=== PATIENT | female | born 1960 | race Caucasian/White ===

== ENCOUNTER 2019-03-11 17:00 | Emergency (ER) | payer OTHER ==
[2019-03-11 17:10] VITALS: BP 131/73; PULSE 72; RESP 18; TEMP 97.4
[2019-03-11] MEDS ORDERED: traMADol 50 MG TAB PO STA (17:40)
[2019-03-11 18:11] LABS: Basophils # (A) 0.1 k/uL (0-0.2); Basophils % (A) 1 %; Eosinophils # (A) 0.3 k/uL (0-0.7); Eosinophils % (A) 5 %; HCT 37.2 % (34.0-46.0); HGB 12.3 gm/dL (11.4-16.0); Lymphocytes # (A) 1.5 k/uL (1.0-4.8); Lymphocytes % (A) 25 %; MCH 32.4 pg (25.0-35.0); MCV 98.5 fL (80.0-100.0); Mean Platelet Volume 6.9; Monocytes # (A) 0.4 k/uL (0-1.0); Monocytes % (A) 7 %; Neutrophils # (A) 3.6 k/uL (1.3-7.7); Neutrophils % (A) 61 %; Platelet Count 120 k/uL (150-450); RBC 3.78 m/uL (3.80-5.40); WBC 5.9 k/uL (3.8-10.6)
[2019-03-11 18:14] LABS: Appearance,Urine Clear (Clear); Bilirubin,Urine Negative (Negative); Blood,Urine Negative (Negative); Color,Urine Yellow; Glucose,Urine (UA) Negative (Negative); Ketones,Urine Negative (Negative); Leukocyte Esterase,Urine Trace (Negative); Mucus,Urine Rare /hpf; Nitrite,Urine Negative (Negative); PH, Urine 5.5 (5.0-8.0); Protein,Urine Negative (Negative); RBC,Urine 1 /hpf (0-5); Specific Gravity,Urine 1.024 (1.001-1.035); Squamous Epithelial Cell,Urine 1 /hpf (0-4); Urobilinogen,Urine <2.0 mg/dL (<2.0); WBC,Urine 2 /hpf (0-5)
[2019-03-11 18:15] LABS: Partial Thromboplastin Time 25.1 sec (22.0-30.0); Prothrombin Time 11.1 sec (9.0-12.0)
[2019-03-11 18:16] LABS: ALT 39 U/L (9-52); AST 62 U/L (14-36); African American GFR (CKD) >90 (>60 ml/min/1.73 sqM); Albumin 3.4 g/dL (3.5-5.0); Alkaline Phosphatase 142 U/L (38-126); Anion Gap 6 mmol/L; Blood Urea Nitrogen 14 mg/dL (7-17); Calcium 9.4 mg/dL (8.4-10.2); Carbon Dioxide 26 mmol/L (22-30); Chloride 103 mmol/L (98-107); Glucose 186 mg/dL (74-99); Potassium 4.3 mmol/L (3.5-5.1); Sodium 135 mmol/L (137-145); Total Bilirubin 1.3 mg/dL (0.2-1.3); Total Protein 6.7 g/dL (6.3-8.2)
--- NOTE | 2019-03-11 18:20 | ED ---
General Adult HPI - General Chief complaint: Recheck/Abnormal Lab/Rx Stated complaint: Broken Rib Time Seen by Provider: 03/11/19 17:13 Source: patient Mode of arrival: ambulatory Limitations: no limitations - History of Present Illness Initial comments: Patient is 4-year-old female with history of sarcoidosis presents emergency Department with chief complaint of abdominal bruising. Patient reports upper respiratory infection for the past month with a nonproductive cough. Patient reports 3 days ago she had a severe coughing fit and felt a pop near the right side of her chest. Patient reports she developed immediate pain that has since decreased in severity. Patient reports yesterday she began to develop ecchymosis near the sternum and along the right side of her chest and right flank region. Patient reports a history of low platelet due to her sarcoidosis. Patient reports the pain is exacerbated when coughing and alleviated when sitting up. Patient reports taking ibuprofen to alleviate the pain. Patient reports going to the urgent care today where an x-ray was performed and she was diagnosed with a fracture or ninth rib. - Related Data Allergies Allergy/AdvReac Type Severity Reaction Status Date / Time No Known Allergies Allergy Verified 03/11/19 17:04 Review of Systems ROS Statement: Those systems with pertinent positive or pertinent negative responses have been documented in the HPI. ROS Other: All systems not noted in ROS Statement are negative. Past Medical History Past Medical History: Liver Disease Additional Past Medical History / Comment(s): sacodosis, R solitary kidney, UPJ L kidney, History of Any Multi-Drug Resistant Organisms: None Reported Past Surgical History: Hysterectomy, Orthopedic Surgery Additional Past Surgical History / Comment(s): L knee, lense replacement Past Psychological History: PTSD Smoking Status: Never smoker Past Alcohol Use History: None Reported, Occasional Past Drug Use History: None Reported General Exam Limitations: no limitations General appearance: alert, in no apparent distress Head exam: Present: atraumatic, normocephalic, normal inspection Eye exam: Present: normal appearance, PERRL, EOMI Pupils: Present: normal accommodation ENT exam: Present: normal exam, normal oropharynx, mucous membranes moist, TM's normal bilaterally, normal external ear exam Neck exam: Present: normal inspection, full ROM Respiratory exam: Present: normal lung sounds bilaterally, chest wall tenderness (Sternal region, right side of the chest and right flank region. Tenderness to palpation. ) Cardiovascular Exam: Present: regular rate, normal rhythm, normal heart sounds GI/Abdominal exam: Present: soft, normal bowel sounds Extremities exam: Present: normal inspection, full ROM Back exam: Present: normal inspection, full ROM Neurological exam: Present: alert, oriented X3 Psychiatric exam: Present: normal affect, normal mood Skin exam: Present: warm, intact, normal color, other ( Ecchymosis noted noted near the inferior sternal region, right chest and right flank region.) Course Vital Signs 03/11/19 17:04 Temperature 97.4 F L Pulse Rate 72 Respiratory 18 Rate Blood Pressure 131/73 O2 Sat by Pulse 98 Oximetry Medical Decision Making - Medical Decision Making patient is a 58-year-old female with history of sarcoidosis presenting to emergency Department with a chief complaint of rib bruising. Patient reports an upper respiratory infection that led to a nonproductive cough. Patient reports a cough if it 3 days ago and felt a pop near the right flank region. Patient reports developing severe pain at that incident as since developed bruising. X- ray from the urgent care suggesting a closed, nondisplaced ninth rib fracture. The fracture is in the anterior lateral region. Physical examination patient a ppears to have ecchymosis near the sternum, right chest and right flank region. Patient has no shortness of breath, chest pain, nausea or vomiting. Labs indicate a platelet count of 120. Patient reports her baseline is 100. Creatinine levels are within normal limits. PT/INR and PTT are within normal limits. I advised the patient that the ecchymosis will eventually resolve but I might take a prolonged period of time. Patient discharged with a tramadol starter pack. Patient advised about possible side effects of medication. Patient advised to follow-up with primary care. Case discussed physician. - Lab Data Result diagrams: 03/11/19 17:56 03/11/19 17:56 Lab Results 03/11/19 03/11/19 03/11/19 Range/Units 17:56 17:56 17:56 WBC 5.9 (3.8-10.6) k/uL RBC 3.78 L (3.80-5.40) m/uL Hgb 12.3 (11.4-16.0) gm/dL Hct 37.2 (34.0-46.0) % MCV 98.5 (80.0-100.0) fL MCH 32.4 (25.0-35.0) pg MCHC 33.0 (31.0-37.0) g/dL RDW 14.0 (11.5-15.5) % Plt Count 120 L (150-450) k/uL Neutrophils % 61 % Lymphocytes % 25 % Monocytes % 7 % Eosinophils % 5 % Basophils % 1 % Neutrophils # 3.6 (1.3-7.7) k/uL Lymphocytes # 1.5 (1.0-4.8) k/uL Monocytes # 0.4 (0-1.0) k/uL Eosinophils # 0.3 (0-0.7) k/uL Basophils # 0.1 (0-0.2) k/uL PT 11.1 (9.0-12.0) sec INR 1.0 (<1.2) APTT 25.1 (22.0-30.0) sec Sodium 135 L (137-145) mmol/L Potassium 4.3 (3.5-5.1) mmol/L Chloride 103 (98-107) mmol/L Carbon Dioxide 26 (22-30) mmol/L Anion Gap 6 mmol/L BUN 14 (7-17) mg/dL Creatinine 0.67 (0.52-1.04) mg/dL Est GFR (CKD-EPI)AfAm >90 (>60 ml/min/1.73 sqM) Est GFR (CKD-EPI)NonAf >90 (>60 ml/min/1.73 sqM) Glucose 186 H (74-99) mg/dL Calcium 9.4 (8.4-10.2) mg/dL Total Bilirubin 1.3 (0.2-1.3) mg/dL AST 62 H (14-36) U/L ALT 39 (9-52) U/L Alkaline Phosphatase 142 H (38-126) U/L Total Protein 6.7 (6.3-8.2) g/dL Albumin 3.4 L (3.5-5.0) g/dL Urine Color Urine Appearance (Clear) Urine pH (5.0-8.0) Ur Specific Mcintosh (1.001-1.035) Urine Protein (Negative) Urine Glucose (UA) (Negative) Urine Ketones (Negative) Urine Blood (Negative) Urine Nitrite (Negative) Urine Bilirubin (Negative) Urine Urobilinogen (<2.0) mg/dL Ur Leukocyte Esterase (Negative) Urine RBC (0-5) /hpf Urine WBC (0-5) /hpf Ur Squamous Epith Cells (0-4) /hpf Urine Mucus (None) /hpf 03/11/19 Range/Units 18:00 WBC (3.8-10.6) k/uL RBC (3.80-5.40) m/uL Hgb (11.4-16.0) gm/dL Hct (34.0-46.0) % MCV (80.0-100.0) fL MCH (25.0-35.0) pg MCHC (31.0-37.0) g/dL RDW (11.5-15.5) % Plt Count (150-450) k/uL Neutrophils % % Lymphocytes % % Monocytes % % Eosinophils % % Basophils % % Neutrophils # (1.3-7.7) k/uL Lymphocytes # (1.0-4.8) k/uL Monocytes # (0-1.0) k/uL Eosinophils # (0-0.7) k/uL Basophils # (0-0.2) k/uL PT (9.0-12.0) sec INR (<1.2) APTT (22.0-30.0) sec Sodium (137-145) mmol/L Potassium (3.5-5.1) mmol/L Chloride (98-107) mmol/L Carbon Dioxide (22-30) mmol/L Anion Gap mmol/L BUN (7-17) mg/dL Creatinine (0.52-1.04) mg/dL Est GFR (CKD-EPI)AfAm (>60 ml/min/1.73 sqM) Est GFR (CKD-EPI)NonAf (>60 ml/min/1.73 sqM) Glucose (74-99) mg/dL Calcium (8.4-10.2) mg/dL Total Bilirubin (0.2-1.3) mg/dL AST (14-36) U/L ALT (9-52) U/L Alkaline Phosphatase (38-126) U/L Total Protein (6.3-8.2) g/dL Albumin (3.5-5.0) g/dL Urine Color Yellow Urine Appearance Clear (Clear) Urine pH 5.5 (5.0-8.0) Ur Specific Mcintosh 1.024 (1.001-1.035) Urine Protein Negative (Negative) Urine Glucose (UA) Negative (Negative) Urine Ketones Negative (Negative) Urine Blood Negative (Negative) Urine Nitrite Negative (Negative) Urine Bilirubin Negative (Negative) Urine Urobilinogen <2.0 (<2.0) mg/dL Ur Leukocyte Esterase Trace H (Negative) Urine RBC 1 (0-5) /hpf Urine WBC 2 (0-5) /hpf Ur Squamous Epith Cells 1 (0-4) /hpf Urine Mucus Rare H (None) /hpf Disposition Clinical Impression: Rib fracture Disposition: HOME SELF-CARE Condition: Stable Instructions (If sedation given, give patient instructions): Rib Fracture (ED), Sarcoidosis (ED) Additional Instructions: Please take prescribed medication as directed. Please follow with primary care. Please return to emergency department if symptoms worsen. Is patient prescribed a controlled substance at d/c from ED?: No Referrals: Nonstaff,Physician [Primary Care Provider] - 1-2 days Time of Disposition: 18:52
[2019-03-11] MEDS ORDERED: traMADol 50 MG STARTER PACK 3 TAB BTL PO STA (18:52)
== END 2019-03-11 18:55 | disposition home or self-care (01) ==
LOC: EC 17:00
DX: S22.31XA Fracture of one rib, right side, initial encounter for closed fracture (principal); D86.9 Sarcoidosis, unspecified; R05 Cough; X58.XXXA Exposure to other specified factors, initial encounter
CPT/HCPCS: 36415; 80053; 81001; 85025; 85610; 85730; 99283

== ENCOUNTER 2021-01-05 13:56 | Emergency (ER) | payer OTHER ==
--- NOTE | 2021-01-05 15:22 | CT ---
EXAMINATION TYPE: CT orbits wo con DATE OF EXAM: 01/05/2021 COMPARISON: None HISTORY: Left eye swelling and redness. CT DLP: 259.2 mGycm Automated exposure control for dose reduction was used. Images obtained from the mid maxillary sinuses to the mid frontal sinuses without contrast. The globes are symmetric. There is no evidence of retro-orbital mass. There is mild preseptal soft ti ssue swelling on the left side. The bony orbits are intact. There is no evidence of a foreign body. T here is fairly normal aeration of the visualized paranasal sinuses. The lacrimal glands are fairly sy mmetric. IMPRESSION: Preseptal left periorbital soft tissue swelling. No retro-orbital mass.
--- NOTE | 2021-01-05 15:28 | ED ---
Eye Problem HPI - General Chief complaint: Eye Problems Stated complaint: In Quicker L eye swollen Time Seen by Provider: 01/05/21 14:29 Source: patient, RN notes reviewed Mode of arrival: ambulatory Limitations: no limitations - History of Present Illness Initial comments: Patient is a 60-year-old female that presents to emergency department with left eye swelling. She notes that she was recently at urgent care and given tobramycin ointment for a stye. She notes that she was given this on Thursday and it has since gotten worse. She notes that it is slightly tender to the touch. She denied any pain on eye movement just tenderness to the superior eyelid and inferior eyelid. She notes that she usually lives in [place] but is in [place] for summer so she does not have a primary care up here. She was requesting for 90 day supply of blood pressure medication. She was informed that the best we can do is a 30 day supply and refer her to a primary care. Patient did not appear to be in any distress or pain while sitting up in bed during exam and interview. She noted that it was more uncomfortable. She denied any blurry vision change in vision chest pain shortness of breath headache nausea vomiting diarrhea constipation fever fatigue chills. - Related Data Previous Rx's Medication Instructions Recorded Clindamycin HCl 300 mg PO Q8HR #21 cap 01/05/21 Losartan/Hydrochlorothiazide 1 tab PO DAILY 30 Days #30 tab 01/05/21 [Losartan-Hctz 100-12.5 mg Tab] Losartan/Hydrochlorothiazide 1 tab PO DAILY 30 Days #30 tab 01/05/21 [Losartan-Hctz 100-12.5 mg Tab] Allergies Allergy/AdvReac Type Severity Reaction Status Date / Time No Known Allergies Allergy Verified 03/11/19 17:04 Review of Systems ROS Statement: Those systems with pertinent positive or pertinent negative responses have been documented in the HPI. ROS Other: All systems not noted in ROS Statement are negative. Past Medical History Past Medical History: Liver Disease Additional Past Medical History / Comment(s): sacodosis, R solitary kidney, UPJ L kidney, History of Any Multi-Drug Resistant Organisms: None Reported Past Surgical History: Hysterectomy, Orthopedic Surgery Additional Past Surgical History / Comment(s): L knee, lense replacement Past Psychological History: PTSD Smoking Status: Never smoker Past Alcohol Use History: Occasional Past Drug Use History: None Reported General Exam Limitations: no limitations General appearance: alert, in no apparent distress Head exam: Present: atraumatic, normocephalic, normal inspection Eye exam: Present: PERRL, EOMI, periorbital swelling (Left eye), periorbital tenderness (Left eye). Absent: scleral icterus, conjunctival injection, nystagmus Pupils: Present: normal accommodation Expanded Eyelids: Stye: Left, Erythema: Left, Swelling: Left Pupils: Regular, Round: Bilateral, Reactive: Bilateral Sclera/Conjunctival: Normal Inspection: Bilateral Neck exam: Present: normal inspection Respiratory exam: Present: normal lung sounds bilaterally. Absent: respiratory distress, wheezes, rales, rhonchi, stridor Cardiovascular Exam: Present: regular rate, normal rhythm, normal heart sounds. Absent: systolic murmur, diastolic murmur, rubs, gallop, clicks Extremities exam: Present: normal inspection, full ROM, normal capillary refill. Absent: tenderness, pedal edema, joint swelling, calf tenderness Neurological exam: Present: alert, oriented X3 Psychiatric exam: Present: normal affect, normal mood Skin exam: Present: warm, dry, intact, normal color. Absent: rash Course Vital Signs 01/05/21 14:03 Temperature 97.9 F Pulse Rate 76 Respiratory 18 Rate Blood Pressure 167/83 O2 Sat by Pulse 98 Oximetry Medical Decision Making - Medical Decision Making Patient is a 60-year-old female complaining of left eye lid swelling and some tenderness. Recently started on tobramycin with no improvement. CT of the orbits, visual acuity ordered. Patient declined the need for any pain medication as it was tolerable at this time. Labs unremarkable. Case discussed with Dr. Au, patient discharge home with follow-up to primary care. - Lab Data Result diagrams: 01/05/21 15:10 Lab Results 01/05/21 Range/Units 15:10 Sodium 135 L (137-145) mmol/L Potassium 4.2 (3.5-5.1) mmol/L Chloride 110 H (98-107) mmol/L Carbon Dioxide 17 L (22-30) mmol/L Anion Gap 8 mmol/L BUN 10 (7-17) mg/dL Creatinine 0.56 (0.52-1.04) mg/dL Est GFR (CKD-EPI)AfAm >90 (>60 ml/min/1.73 sqM) Est GFR (CKD-EPI)NonAf >90 (>60 ml/min/1.73 sqM) Glucose 98 (74-99) mg/dL Calcium 9.4 (8.4-10.2) mg/dL - Radiology Data Radiology results: report reviewed, image reviewed CT of the orbits: Preseptal left periorbital soft tissue swelling. No retro- orbital mass. Disposition Clinical Impression: Periorbital cellulitis Disposition: HOME SELF-CARE Condition: Stable Instructions (If sedation given, give patient instructions): Periorbital Cellu litis in Adults (ED) Additional Instructions: Please return to the Emergency Department if symptoms worsen or any other concerns. Take antibiotics as prescribed. Follow-up with primary care in 5-7 days. Prescriptions: Clindamycin HCl 300 mg PO Q8HR #21 cap Losartan/Hydrochlorothiazide [Losartan-Hctz 100-12.5 mg Tab] 1 tab PO DAILY 30 Days #30 tab Losartan/Hydrochlorothiazide [Losartan-Hctz 100-12.5 mg Tab] 1 tab PO DAILY 30 Days #30 tab Is patient prescribed a controlled substance at d/c from ED?: No Referrals: Nonstaff,Physician [Primary Care Provider] - 1-2 days Tessa Bueno MD [REFERRING] - 1-2 days Time of Disposition: 16:14
[2021-01-05 15:50] LABS: African American GFR (CKD) >90 (>60 ml/min/1.73 sqM); Anion Gap 8 mmol/L; Blood Urea Nitrogen 10 mg/dL (7-17); Calcium 9.4 mg/dL (8.4-10.2); Carbon Dioxide 17 mmol/L (22-30); Chloride 110 mmol/L (98-107); Glucose 98 mg/dL (74-99); Non-African American GFR(CKD) >90 (>60 ml/min/1.73 sqM); Sodium 135 mmol/L (137-145)
[2021-01-05 15:58] LABS: Potassium 4.2 mmol/L (3.5-5.1)
[2021-01-05 16:23] LABS: Basophils % (A) 1 %; Eosinophils # (A) 0.1 k/uL (0-0.7); Eosinophils % (A) 2 %; HCT 41.3 % (34.0-46.0); HGB 14.5 gm/dL (11.4-16.0); Lymphocytes # (A) 1.8 k/uL (1.0-4.8); Lymphocytes % (A) 31 %; MCH 34.6 pg (25.0-35.0); MCHC 35.1 g/dL (31.0-37.0); MCV 98.6 fL (80.0-100.0); Mean Platelet Volume 6.9; Monocytes # (A) 0.4 k/uL (0-1.0); Monocytes % (A) 6 %; Neutrophils # (A) 3.3 k/uL (1.3-7.7); Neutrophils % (A) 57 %; Platelet Count 110 k/uL (150-450); RBC 4.19 m/uL (3.80-5.40); RDW 13.7 % (11.5-15.5); WBC 5.9 k/uL (3.8-10.6)
[2021-01-05 16:37] VITALS: BP 155/68; PULSE 84; RESP 20; TEMP 97.5
== END 2021-01-05 16:15 | disposition home or self-care (01) ==
LOC: EC 13:56
DX: L03.213 Periorbital cellulitis (principal)
CPT/HCPCS: 36415; 70480; 80048; 85025; 99284

== ENCOUNTER 2024-05-23 18:47 | Observation (INO) | payer OTHER ==
[2024-05-23 19:40] LABS: Appearance,Urine Clear (Clear); Bilirubin,Urine Negative (Negative); Blood,Urine Negative (Negative); Color,Urine Colorless; Glucose,Urine (UA) Negative (Negative); Ketones,Urine Negative (Negative); Leukocyte Esterase,Urine Negative (Negative); Nitrite,Urine Negative (Negative); Protein,Urine Negative (Negative); Specific Gravity,Urine 1.005 (1.001-1.035); Urobilinogen,Urine <2.0 mg/dL (<2.0)
--- NOTE | 2024-05-23 20:58 | XR ---
EXAMINATION TYPE: XR chest 2V DATE OF EXAM: 05/23/2024 8:05 PM COMPARISON: None. CLINICAL INDICATION: Female, 64 years old with history of Chest Pain, TECHNIQUE: XR chest 2V view(s) obtained. FINDINGS: The heart size is normal. The pulmonary vasculature is normal. Posterior pleural effusions are present.. IMPRESSION: 1. Posterior pleural effusions [facility], , 05/23/2024 8:56 PM
--- NOTE | 2024-05-23 21:25 | ED ---
Chest Pain HPI - General Chief Complaint: Chest Pain Stated Complaint: Chest pain Time Seen by Provider: 05/23/24 19:35 Source: patient, RN notes reviewed Mode of arrival: EMS Limitations: no limitations - History of Present Illness Initial Comments: 64-year-old female presents emergency department chief complaint of chest pain. Patient states she has centralized chest pain sternal substernal chest pain. Patient does admit that she had a fall 10 days ago down some steps. States she has some soreness but since Thursday she had severe substernal chest pain. Patient denies any prior cardiac disease other than known aortic valve issues. Patient states that she does have pulmonary hypertension. She states that she developed some leg pain and is recently traveled back from [place]. Patient states that she had ultrasound at [place] which was negative for acute DVT. Patient states that pain is worse with movement but out of the usual for her. Patient denies any fevers or chills she does complain of right arm skin tear in which she has been taking care of. - Related Data Previous Rx's Medication Instructions Recorded Losartan/Hydrochlorothiazide 1 tab PO DAILY 30 Days #30 tab 01/05/21 [Losartan-Hctz 100-12.5 mg Tab] Losartan/Hydrochlorothiazide 1 tab PO DAILY 30 Days #30 tab 01/05/21 [Losartan-Hctz 100-12.5 mg Tab] Potassium Chloride ER [K-Dur 10] 10 meq PO DAILY 15 Days #15 tab 01/05/21 clindamycin HCL [Clindamycin HCl] 300 mg PO Q8HR #21 cap 01/05/21 Allergies Allergy/AdvReac Type Severity Reaction Status Date / Time No Known Allergies Allergy Verified 03/11/19 17:04 Review of Systems ROS Statement: Those systems with pertinent positive or pertinent negative responses have been documented in the HPI. ROS Other: All systems not noted in ROS Statement are negative. Past Medical History Past Medical History: Liver Disease Additional Past Medical History / Comment(s): sacodosis, R solitary kidney, UPJ L kidney, History of Any Multi-Drug Resistant Organisms: None Reported Past Surgical History: Hysterectomy, Orthopedic Surgery Additional Past Surgical History / Comment(s): L knee, lense replacement Past Psychological History: PTSD Smoking Status: Never smoker Past Alcohol Use History: Occasional Past Drug Use History: None Reported General Exam Limitations: no limitations General appearance: alert, in no apparent distress Head exam: Present: atraumatic, normocephalic, normal inspection ENT exam: Present: normal exam, normal oropharynx, mucous membranes moist Neck exam: Present: normal inspection, full ROM. Absent: tenderness, meningismus, lymphadenopathy Respiratory exam: Present: normal lung sounds bilaterally, chest wall tenderness. Absent: respiratory distress, wheezes, rales, rhonchi, stridor Cardiovascular Exam: Present: regular rate, normal rhythm, normal heart sounds. Absent: systolic murmur, diastolic murmur, rubs, gallop, clicks GI/Abdominal exam: Present: soft, normal bowel sounds. Absent: distended, tenderness, guarding, rebound, rigid Course Vital Signs 05/23/24 05/23/24 18:51 22:15 Temperature 98.1 F Pulse Rate 78 73 Respiratory 20 18 Rate Blood Pressure 166/78 139/69 O2 Sat by Pulse 96 98 Oximetry Chest Pain MDM - MDM Was pt. sent in by a medical professional or institution (, PA, GENERAL FARMER, urgent care, hospital, or half-way...) When possible be specific @ -No Did you speak to anyone other than the patient for history (EMS, parent, family, police, friend...)? What history was obtained from this source @ -No Did you review nursing and triage notes (agree or disagree)? Why? @ -I reviewed and agree with nursing and triage notes Were old charts reviewed (outside hosp., previous admission, EMS record, old EKG, old radiological studies, urgent care reports/EKG's, half-way records)? Report findings @ -No old charts were reviewed Differential Diagnosis (chest pain, altered mental status, abdominal pain women, abdominal pain men, vaginal bleeding, weakness, fever, dyspnea, syncope, headache, dizziness, GI bleed, back pain, seizure, CVA, palpatations, mental health, musculoskeletal)? @ -Differential Chest Pain: Stable Angina, Unstable Angina, STEMI, NSTEMI Aortic Dissection, Pneumothorax, Musculoskeletal, Esophageal Spasm GERD, Cholecystitis, Pancreatitis, Zoster, this is not meant to be an all-inclusive list. EKG interpreted by me (3pts min.). @ -As above X-rays interpreted by me (1pt min.). @ -Chest x-ray shows bilateral pleural effusions CT interpreted by me (1pt min.). @ -CT angio chest negative for acute PE, there is right-sided pleural effusion, remote fractures CT abdomen pelvis showing large return inclusion cyst of the left U/S interpreted by me (1pt. min.). @ -None done What testing was considered but not performed or refused? (CT, X-rays, U/S, labs)? Why? @ -None What meds were considered but not given or refused? Why? @ -None Did you discuss the management of the patient with other professionals (professionals i.e. , PA, GENERAL FARMER, lab, RT, psych nurse, social welfare clerk, refrigerated cargo clerk, teacher, assault amphibious vehicle officer, major case detective)? Give summary @ -EMH for admission Was smoking cessation discussed for >3mins.? @ -No Was critical care preformed (if so, how long)? @ -No Were there social determinants of health that impacted care today? How? (Homelessness, low income, unemployed, alcoholism, drug addiction, transportation, low edu. Level, literacy, decrease access to med. care, correction, rehab)? @ -No Was there de-escalation of care discussed even if they declined (Discuss DNR or withdrawal of care, Hospice)? DNR status @ -No What co-morbidities impacted this encounter? (DM, HTN, Smoking, COPD, CAD, Cancer, CVA, ARF, Chemo, Hep., AIDS, mental health diagnosis, sleep apnea, morbid obesity)? @ -Liver disease, prior TIPS, left nephrectomy Was patient admitted / discharged? Hospital course, mention meds given and route, prescriptions, significant lab abnormalities, going to OR and other pertinent info. @ -Admitted patient presented for chest pain. Patient been worsening chest pain multiple risk factors. Patient has pleural effusion noted, no PE. Patient on repeat troponin. Patient marked have large intra-abdominal cyst, mass will be admitted with cardiology and surgery evaluation Undiagnosed new problem with uncertain prognosis? @ -yes Drug Therapy requiring intensive monitoring for toxicity (Heparin, Nitro, Insulin, Cardizem)? @ -No Were any procedures done? @ -No Diagnosis/symptom? @ -chest Pain, abdominal mass Acute, or Chronic, or Acute on Chronic? @ -acute Uncomplicated (without systemic symptoms) or Complicated (systemic symptoms)? @ -complicated Side effects of treatment? @ -No Exacerbation, Progression, or Severe Exacerbation? @ -No Poses a threat to life or bodily function? How? (Chest pain, [place], [place], pneumonia, PE, COPD, DKA, ARF, appy, cholecystitis, CVA, Diverticulitis, Homicidal, Suicidal, threat to staff... and all critical care pts) @ -Yes possible ACS causing cardiac arrest Disposition Clinical Impression: Chest pain, Abdominal mass Disposition: ADMITTED IP TO THIS HOSP Referrals: Nonstaff,Physician [Primary Care Provider] - 1-2 days Time of Disposition: 23:50
[2024-05-23 21:52] LABS: Basophils % (A) 0 %; Eosinophils # (A) 0.1 k/uL (0-0.7); Eosinophils % (A) 2 %; HCT 39.9 % (34.0-46.0); HGB 13.2 gm/dL (11.4-16.0); Lymphocytes # (A) 1.7 k/uL (1.0-4.8); Lymphocytes % (A) 27 %; MCH 34.5 pg (25.0-35.0); MCHC 33.1 g/dL (31.0-37.0); MCV 104.4 fL (80.0-100.0); Macrocytosis Moderate; Mean Platelet Volume 7.3; Monocytes # (A) 0.4 k/uL (0-1.0); Monocytes % (A) 6 %; Neutrophils # (A) 4.1 k/uL (1.3-7.7); Neutrophils % (A) 63 %; Platelet Count 108 k/uL (150-450); RBC 3.83 m/uL (3.80-5.40); RDW 14.3 % (11.5-15.5); WBC 6.5 k/uL (3.8-10.6)
[2024-05-23] MEDS: HYDROmorphone 0.5 MG/0.5 ML SYRINGE IVP STA (21:55)
[2024-05-23 22:01] LABS: ALT 33 U/L (4-34); AST 58 U/L (14-36); African American GFR (CKD) >90 (>60 ml/min/1.73 sqM); Albumin 2.9 g/dL (3.5-5.0); Alkaline Phosphatase 198 U/L (38-126); Anion Gap 4 mmol/L; Blood Urea Nitrogen 14 mg/dL (7-17); Calcium 9.3 mg/dL (8.4-10.2); Carbon Dioxide 22 mmol/L (22-30); Chloride 109 mmol/L (98-107); Glucose 92 mg/dL (74-99); Magnesium 1.4 mg/dL (1.6-2.3); Non-African American GFR(CKD) >90 (>60 ml/min/1.73 sqM); Potassium 3.7 mmol/L (3.5-5.1); Sodium 135 mmol/L (137-145); Total Bilirubin 4.3 mg/dL (0.2-1.3); Total Protein 5.8 g/dL (6.3-8.2)
[2024-05-23 22:09] LABS: NT-Pro-B-Type Natriuretic Pept 1150 pg/mL
[2024-05-23 22:10] LABS: INR 1.4 (<1.2); Partial Thromboplastin Time 26.9 sec (22.0-30.0); Prothrombin Time 14.7 sec (10.0-12.5)
[2024-05-23] MEDS: SODIUM CHLORIDE 0.9% 500 ML 500 ML IV ONE (22:56)
--- NOTE | 2024-05-23 23:11 | CT ---
EXAM: CT Angiography Chest With Intravenous Contrast CLINICAL HISTORY: ITS.REASON CT Reason: chest pain TECHNIQUE: Axial computed tomographic angiography images of the chest with intravenous contrast. CTDI is 58.8 mGy and DLP is 1534.3 mGy-cm. This CT exam was performed using one or more of the following dose reduction techniques: automated exposure control, adjustment of the mA and/or kV according to patient size, and/or use of iterative reconstruction technique. MIP reconstructed images were created and reviewed. COMPARISON: No relevant prior studies available. FINDINGS: Pulmonary arteries: No acute findings. No pulmonary embolism. Aorta: Mild calcified plaque thoracic aorta. No thoracic aortic aneurysm. Lungs: See below. Pleural space: Small right pleural effusion. Mild bibasilar atelectasis. No pneumothorax. Heart: Mild coronary artery calcification. Bones/joints: Remote-appearing rib fractures. No dislocation. Soft tissues: Some edema in the subcutaneous tissues of the chest wall. Lymph nodes: Unremarkable. No enlarged lymph nodes. Other findings: Sequela of old granulomatous disease in the chest. IMPRESSION: 1. No pulmonary embolism. 2. Small right pleural effusion. Mild bibasilar atelectasis.
--- NOTE | 2024-05-23 23:21 | CT ---
EXAM: CT Abdomen and Pelvis With Intravenous Contrast CLINICAL HISTORY: ITS.REASON CT Reason: pain TECHNIQUE: Axial computed tomography images of the abdomen and pelvis with intravenous contrast. CTDI is 62.4 mGy and DLP is 1543.3 mGy-cm. This CT exam was performed using one or more of the following dose reduction techniques: automated exposure control, adjustment of the mA and/or kV according to patient size, and/or use of iterative reconstruction technique. COMPARISON: No relevant prior studies available. FINDINGS: ABDOMEN: Liver: Cirrhotic liver. TIPS. Gallbladder and bile ducts: Unremarkable. No calcified stones. No ductal dilation. Pancreas: Unremarkable. No mass. No ductal dilation. Spleen: Unremarkable. No splenomegaly. Adrenals: Unremarkable. No mass. Kidneys and ureters: Left nephrectomy. Stomach and bowel: Small duodenal diverticulum. Colonic diverticulosis. No obstruction. No mucosal thickening. PELVIS: Appendix: No findings to suggest acute appendicitis. Bladder: Small foci of gas in bladder. Reproductive: Hysterectomy. ABDOMEN and PELVIS: Intraperitoneal space: Large cyst in the left abdomen. This measures 21 x 17 x 25 cm. No free air. No significant fluid collection. Bones/joints: Degenerative changes in the spine, SI joints and pubic symphysis. No acute fracture. No dislocation. Soft tissues: Anasarca. Vasculature: Calcified plaque abdominal aorta and iliac arteries. Multiple portosystemic collaterals. No abdominal aortic aneurysm. Lymph nodes: Unremarkable. No enlarged lymph nodes. IMPRESSION: 1. Small foci of gas in bladder. Correlate for recent instrumentation versus cystitis. 2. Cirrhotic liver. Findings of portal hypertension. 3. Large cyst in the left abdomen. This measures 21 x 17 x 25 cm. This may represent a peritoneal inclusion cyst. 4. Colonic diverticulosis.
[2024-05-23] MEDS ORDERED: NITROGLYCERIN SL TABS 0.4 MG TAB SUBLINGUAL PRN (23:44)
[2024-05-23] MEDS ORDERED: ONDANSETRON 4 MG/2 ML VIAL IVP PRN (23:47)
[2024-05-24] MEDS: HYDROmorphone 0.5 MG/0.5 ML SYRINGE IVP PRN (00:27)
--- NOTE | 2024-05-24 08:13 | P.CRDCN ---
History of Present Illness Consult date: 05/24/24 Consult reason: chest pain History of present illness: This is a 64-year-old female with no previous cardiac history and does not follow with a paster operator. She has a past medical history of hypertension, fatty liver with end-stage liver disease on transplant list, hypertension, GERD. We have been asked to evaluate the patient for chest pain. Patient states that on May 13 she return from [place] was at her sister's place in [place] and fell down stairs injuring her knee her right arm and across her chest. She denies any loss of consciousness. But she had difficulty walking following this due to knee injury. When she went to her own home, she was sore but was doing okay until Thursday evening she developed excruciating chest pain in the sternal area that was sharp, worse with deep breathing. She denies any radiation of the pain. Patient follows with [facility] in [place] every 3 months due to the liver failure status post TIPS procedure 2 years ago. She has been on the liver transplant list for 1 year. She underwent a dobutamine stress test at [facility] in September of this year which she reports is normal as well as echocardiogram. Regarding the chest pain, she does states she hit her chest when she fell on May 13. She does have tenderness to the chest wall. Patient does have lower extremity edema which she states has been increased since her fall. She did take her Lasix 40 mg yesterday as well as Aldactone 100 mg. Blood pressure 126/57, heart rate 68, pulse ox 97% on 2 L. Also, patient recently had ultrasound of lower extremities at [facility] negative for DVT EKG: Chest x-ray: Posterior pleural effusions. CT of the abdomen pelvis revealed small foci of gas in bladder. Correlate for r ecent instrumentation versus cystitis. Cirrhotic liver with portal hypertension. Large cyst in the left abdomen measuring 21 x 17 x 25 cm. This may represent a peritoneal inclusion cyst. Colonic diverticulosis. CTA of the chest revealed no pulmonary embolism. Small right pleural effusion. Mild bibasilar atelectasis. Laboratory studies: WBC 6.5, hemoglobin 13.2. INR 1.4. D-dimer 5.79. Sodium 135, potassium 3.7. Creatinine 0.69. Troponin negative x 3. Magnesium 1.4. Total bilirubin 4.3, AST 58, alkaline phosphatase 198. proBNP 1150 Home cardiac medications: Clonidine patch 0.1 mg per 24-hour on Wednesdays and Saturdays, Lasix 20 mg daily as needed, losartan 100 mg daily as needed. Review Of Systems: At the time of my exam: CONSTITUTIONAL: Denies fever or chills. HEENT: Denies blurred vision, vision changes, or eye pain. Denies hemoptysis CARDIOVASCULAR: Denies chest pain. Denies orthopnea. Denies PND. Denies palpitations RESPIRATORY: Denies shortness of breath. GASTROINTESTINAL: Denies abdominal pain. Denies nausea or vomiting. HEMATOLOGIC: Denies bleeding disorders. GENITOURINARY: Denies any blood in urine. SKIN: Denies puritis. Denies rash. Physical examination: Gen: This is a 64-year-old female in no acute distress VS: reviewed HEENT: Head is atraumatic, normocephalic. Pupils equal, round. Sclerae is anicteric. NECK: Supple. No JVD. LUNGS: Clear to auscultation. No wheezes or rhonchi. No intercostal retractions. HEART: Regular rate and rhythm. No murmur. ABDOMEN: Soft No tenderness. EXTREMITIES: Bilateral lower extremity edema. No calf tenderness. NEUROLOGICAL: Patient is awake, alert and oriented x3. Assessment: Noncardiac chest pain, musculoskeletal chest pain is reproducible secondary to recent fall History of end-stage liver disease on transplant list Hypertension Plan: Start patient on IV Lasix 40 mg every 12 hours Monitor ISADORA, daily weights, electrolytes and renal function No plan to repeat stress test as this was done in September Obtain 2-D echocardiogram and Doppler study to assess cardiac structure and function Further recommendations to follow based upon clinical course Thank you kindly for this consultation. Nurse practitioner note has been reviewed, I agree with documented findings and plan of care. Patient was seen and examined. Past Medical History Past Medical History: Liver Disease Additional Past Medical History / Comment(s): sacodosis, R solitary kidney, UPJ L kidney, History of Any Multi-Drug Resistant Organisms: None Reported Past Surgical History: Hysterectomy, Orthopedic Surgery Additional Past Surgical History / Comment(s): L knee, lense replacement Past Psychological History: PTSD Smoking Status: Never smoker Past Alcohol Use History: Occasional Past Drug Use History: None Reported Medications and Allergies Home Medications Medication Instructions Recorded Confirmed Type ALPRAZolam [Xanax] 0.25 mg PO Q8H PRN 05/24/24 05/24/24 History Acetaminophen [Tylenol Extra 500 mg PO Q6H PRN 05/24/24 05/24/24 History Strength] Cholecalciferol (Vitamin D3) 50 mcg PO DAILY 05/24/24 05/24/24 History [Vitamin D3 (50 Mcg = 2000 Iu)] Furosemide [Lasix] 20 mg PO DAILY PRN 05/24/24 05/24/24 History Losartan Potassium [Cozaar] 100 mg PO DAILY PRN 05/24/24 05/24/24 History Pantoprazole [Protonix] 40 mg PO DAILY PRN 05/24/24 05/24/24 History Rifaximin [Xifaxan] 550 mg PO BID 05/24/24 05/24/24 History Sertraline [Zoloft] 25 mg PO DAILY 05/24/24 05/24/24 History Vitamin A 2,400 mcg PO DAILY 05/24/24 05/24/24 History cloNIDine 0.1 MG/24HR PATCH 1 patch TRANSDERM WESA 05/24/24 05/24/24 History [Catapres-TTS] Allergies Allergy/AdvReac Type Severity Reaction Status Date / Time No Known Allergies Allergy Verified 05/24/24 07:31 Physical Exam Vitals: Vital Signs Temp Pulse Resp BP Pulse Ox 05/24/24 04:51 76 18 126/57 97 05/24/24 00:36 78 18 130/51 96 05/23/24 22:15 73 18 139/69 98 05/23/24 18:51 98.1 F 78 20 166/78 96 Intake and Output 05/23/24 05/24/24 05/24/24 22:59 06:59 14:59 Other: Weight 122.47 kg Results 05/23/24 21:44 05/23/24 21:44 Cardiac Enzymes 05/23/24 05/23/24 05/24/24 Range/Units 21:44 21:44 00:52 AST 58 H (14-36) U/L Troponin I 0.019 0.019 (0.000-0.034) ng/mL 05/24/24 Range/Units 03:38 AST (14-36) U/L Troponin I 0.021 (0.000-0.034) ng/mL Coagulation 05/23/24 Range/Units 21:44 PT 14.7 H (10.0-12.5) sec APTT 26.9 (22.0-30.0) sec CBC 05/23/24 Range/Units 21:44 WBC 6.5 (3.8-10.6) k/uL RBC 3.83 (3.80-5.40) m/uL Hgb 13.2 (11.4-16.0) gm/dL Hct 39.9 (34.0-46.0) % Plt Count 108 L (150-450) k/uL Comprehensive Metabolic Panel 05/23/24 Range/Units 21:44 Sodium 135 L (137-145) mmol/L Potassium 3.7 (3.5-5.1) mmol/L Chloride 109 H (98-107) mmol/L Carbon Dioxide 22 (22-30) mmol/L BUN 14 (7-17) mg/dL Creatinine 0.69 (0.52-1.04) mg/dL Glucose 92 (74-99) mg/dL Calcium 9.3 (8.4-10.2) mg/dL AST 58 H (14-36) U/L ALT 33 (4-34) U/L Alkaline Phosphatase 198 H (38-126) U/L Total Protein 5.8 L (6.3-8.2) g/dL Albumin 2.9 L (3.5-5.0) g/dL Current Medications Generic Name Dose Route Start Last Admin Trade Name Freq PRN Reason Stop Dose Admin Aspirin 325 mg 05/24/24 09:00 Aspirin 325 Mg Tab PO DAILY CARLENE Hydromorphone HCl 0.5 mg 05/23/24 23:46 05/24/24 04:55 Hydromorphone 0.5 Mg/0.5 Ml Syringe IVP 0.5 mg Q3HR PRN Administration Pain Nitroglycerin 0.4 mg 05/23/24 23:44 Nitroglycerin Sl Tabs 0.4 Mg Tab SUBLINGUAL Q5M PRN Chest Pain Ondansetron HCl 4 mg 05/23/24 23:47 Ondansetron 4 Mg/2 Ml Vial IVP Q6HR PRN Nausea And Vomiting Intake and Output 05/23/24 05/24/24 05/24/24 22:59 06:59 14:59 Other: Weight 122.47 kg 05/23/24 21:44 05/23/24 21:44
[2024-05-24] MEDS: ASPIRIN 325 MG TAB PO SCH (08:48)
[2024-05-24] MEDS: FUROSEMIDE 10 MG/ML 4 ML VIAL IV SCH (08:48)
[2024-05-24 09:42] LABS: Chol/HDL Ratio 4.02 Ratio; LDL Cholesterol,Calculated 133.2 mg/dL (0.0-131.0); VLDL Calculation 14.84 mg/dL (5.00-40.00)
--- NOTE | 2024-05-24 12:31 | CA ---
Transthoracic Echo Report Name: Paradise Walton Age: 64 Gender: F : 1960 Exam Date: 05/24/2024 08:45 Exam Location: [facility] Ht (in): 65 Wt (lb): 270 Ordering Physician: Florentino Mobley PAC Attending/Referring Phys: YENNI, Leandra Principal Database Developer Fatimah Oro, KAMILLE Procedure CPT: Indications: Chest Pain Cardiac Hx: Technical Quality: Fair Contrast 1: Total Dose (mL): Contrast 2: Total Dose (mL): MEASUREMENTS (Male / Female) Normal Values 2D ECHO LV Diastolic Diameter PLAX 5.6 cm 4.2 - 5.9 / 3.9 - 5.3 cm LV Systolic Diameter PLAX 2.7 cm IVS Diastolic Thickness 1.2 cm 0.6 - 1.0 / 0.6 - 0.9 cm LVPW Diastolic Thickness 1.2 cm 0.6 - 1.0 / 0.6 - 0.9 cm LV Relative Wall Thickness 0.4 RV Internal Dim ED PLAX 2.6 cm LVOT Diameter 1.9 cm LA Systolic Diameter LX 5.0 cm 3.0 - 4.0 / 2.7 - 3.8 cm LV Diastolic Volume MOD BP 83.3 cm??? 67 - 155 / 56 - 104 cm??? LV Systolic Volume MOD BP 18.7 cm??? 22 - 58 / 19 - 49 cm??? LV Ejection Fraction MOD BP 77.6 % >= 55 % LV Cardiac Index MOD BP 2040.1 cm???/min???m??? LV Diastolic Volume MOD 4C 88.4 cm??? LV Systolic Volume MOD 4C 21.6 cm??? LV Ejection Fraction MOD 4C 75.6 % LV Cardiac Index MOD 4C 2111.6 cm???/min???m??? LV Diastolic Length 4C 7.8 cm LV Systolic Length 4C 5.6 cm LV Diastolic Volume MOD 2C 75.9 cm??? LV Systolic Volume MOD 2C 15.9 cm??? LV Ejection Fraction MOD 2C 79.0 % LV Cardiac Index MOD 2C 1892.3 cm???/min???m??? LV Diastolic Length 2C 7.5 cm LV Systolic Length 2C 5.8 cm LA Volume 84.1 cm??? 18 - 58 / 22 - 52 cm??? LA Volume Index 34.5 cm???/m??? 16 - 28 cm???/m??? M-MODE Aortic Root Diameter MM 3.1 cm LA Systolic Diameter MM 5.3 cm LA Ao Ratio MM 1.7 AV Cusp Separation MM 1.4 cm DOPPLER AV Peak Velocity 265.8 cm/s AV Peak Gradient 28.3 mmHg AV Mean Velocity 204.0 cm/s AV Mean Gradient 17.9 mmHg AV Velocity Time Integral 63.7 cm AI Peak Velocity 376.4 cm/s AI Peak Gradient 56.7 mmHg AI Pressure Half Time 696.9 ms LVOT Peak Velocity 135.4 cm/s LVOT Peak Gradient 7.3 mmHg LVOT Velocity Time Integral 33.5 cm LVOT Stroke Volume 98.0 cm??? LVOT Stroke Volume Index 43.6 ml/m??? LVOT Cardiac Index 3095.0 cm???/min???m??? AV Area Cont Eq vti 1.5 cm??? AV Area Cont Eq pk 1.5 cm??? MV Area PHT 2.3 cm??? Mitral E Point Velocity 113.0 cm/s Mitral A Point Velocity 132.5 cm/s Mitral E to A Ratio 0.9 MV Deceleration Time 332.5 ms TR Peak Velocity 254.8 cm/s TR Peak Gradient 26.0 mmHg FINDINGS Left Ventricle Left ventricular ejection fraction is estimated at 55-60%. Mildly increased septal wall thickness. Mildly increased posterior wall thickness. Mildly increased left ventricular diastolic diameter. No obvious regional wall motion abnormalities. Right Ventricle Normal right ventricular size and function. Right ventricular systolic pressure within normal limits. Right Atrium Mild right atrial dilatation. Left Atrium Severely increased left atrial diameter. Moderately increased left atrial volume. Mildly increased left atrial area. Mitral Valve Structurally normal mitral valve. Mild mitral regurgitation. No mitral stenosis. Aortic Valve Mild aortic stenosis with a peak gradient of 28 mmHg and a mean gradient of 18 mmHg. Mild aortic regurgitation. Trileaflet aortic valve. Tricuspid Valve Structurally normal tricuspid valve. Mild tricuspid regurgitation. No tricuspid stenosis. Pulmonic Valve Structurally normal pulmonic valve. No pulmonic stenosis. Trace pulmonic regurgitation. Pericardium Echo free space anterior to the right ventricle likely represents a fat pad. No pericardial or pleural effusion. Aorta Normal size aortic root and proximal ascending aorta. CONCLUSIONS Normal biventricular systolic function Aortic sclerosis with mild to moderate stenosis and mean gradient of 18 mmHg and mild aortic insufficiency Normal pulmonary artery systolic pressure Previewed by: Dr. Steffen Murray MD (Electronically Signed) Final Date: 24 May 2024 12:30
--- NOTE | 2024-05-24 12:57 | P.GSCN ---
History of Present Illness Consult date: 05/24/24 History of present illness: CHIEF COMPLAINT: Chest pain HISTORY OF PRESENT ILLNESS: This is a 64-year-old female who presented with chest pain. Patient had a fall on May 13 she had tripped on steps. And since then she has been having chest pain. She reports on Thursday the pain became worse and she came into the ER for further evaluation. Patient seen by cardiology service who felt that is more musculoskeletal pain. CT was negative for PE. She did have a CT scan of the abdomen which did report a large cyst in the left abdomen measuring 21 x 17 x 25 cm. Patient denies any abdominal pain. Denies any nausea or vomiting. She has been having bowel movements. She does have a known history of liver disease and is on a transplant list at [facility]. She denies any alcohol history. Patient seen and examined with Dr. Salas PAST MEDICAL HISTORY: Liver disease on transplant list, sarcoidosis, right solitary kidney, UPJ left kidney PAST SURGICAL HISTORY: Hysterectomy MEDICATIONS: See below ALLERGIES: See below SOCIAL HISTORY: No illicit drug use. REVIEW OF SYSTEMS: CONSTITUTIONAL: Denies fever or chills. HEENT: Denies blurred vision, vision changes, or eye pain. Denies hemoptysis CARDIOVASCULAR: Denies chest pain or pressure. RESPIRATORY: No shortness of breath. GASTROINTESTINAL: See HPI for pertinent findings HEMATOLOGIC: Denies bleeding disorders. GENITOURINARY: Denies any blood in urine or increased urinary frequency. SKIN: Denies pruitis. Denies rash. PHYSICAL EXAM: VITAL SIGNS: Reviewed GENERAL: Well-developed in no acute distress. HEENT: No sclera icterus. Extraocular movements grossly intact. Moist buccal m ucosa. Head is atraumatic, normocephalic. No nasal drainage. ABDOMEN: Soft. Obese. Nondistended. Nontender NEUROLOGIC: Alert and oriented. Cranial nerves II through XII grossly intact. LABORATORY DATA: WBC 6.5 Hgb 13.2 platelets 108 INR 1.4 D-dimer 5.79 Sodium 135 potassium 3.7 magnesium 1.4 total bili 4.3 AST 58 ALT 33 alk phos 198 Troponins negative x 3 Albumin 2.9 IMAGING: CT scan abdomen pelvis reports small foci of gas in bladder correlate for recent instrumentation versus cystitis. Cirrhotic liver. Findings of portal hypertension. Large cyst in the left abdomen measuring 21 x 17 x 24 cm. This may represent a peritoneal inclusion cyst. Colonic diverticulosis. ASSESSMENT: 1. Large cyst in the left abdomen measuring 21 x 17 x 24 cm possible peritoneal inclusion cyst PLAN: -No surgical intervention planned -Recommend repeat CT scan of abdomen pelvis in 3 months Physician Electronic Game Developer note has been reviewed by physician. Signing provider agrees with the documented findings, assessment, and plan of care. Past Medical History Past Medical History: Liver Disease Additional Past Medical History / Comment(s): sacodosis, R solitary kidney, UPJ L kidney, History of Any Multi-Drug Resistant Organisms: None Reported Past Surgical History: Hysterectomy, Orthopedic Surgery Additional Past Surgical History / Comment(s): L knee, lense replacement Past Psychological History: PTSD Smoking Status: Never smoker Past Alcohol Use History: Occasional Past Drug Use History: None Reported Medications and Allergies Home Medications Medication Instructions Recorded Confirmed Type ALPRAZolam [Xanax] 0.25 mg PO Q8H PRN 05/24/24 05/24/24 History Acetaminophen [Tylenol Extra 500 mg PO Q6H PRN 05/24/24 05/24/24 History Strength] Cholecalciferol (Vitamin D3) 50 mcg PO DAILY 05/24/24 05/24/24 History [Vitamin D3 (50 Mcg = 2000 Iu)] Furosemide [Lasix] 20 mg PO DAILY PRN 05/24/24 05/24/24 History Losartan Potassium [Cozaar] 100 mg PO DAILY PRN 05/24/24 05/24/24 History Pantoprazole [Protonix] 40 mg PO DAILY PRN 05/24/24 05/24/24 History Rifaximin [Xifaxan] 550 mg PO BID 05/24/24 05/24/24 History Sertraline [Zoloft] 25 mg PO DAILY 05/24/24 05/24/24 History Vitamin A 2,400 mcg PO DAILY 05/24/24 05/24/24 History cloNIDine 0.1 MG/24HR PATCH 1 patch TRANSDERM WESA 05/24/24 05/24/24 History [Catapres-TTS] Allergies Allergy/AdvReac Type Severity Reaction Status Date / Time No Known Allergies Allergy Verified 05/24/24 07:31 Surgical - Exam Vital Signs Temp Pulse Resp BP Pulse Ox 98.1 F 78 20 166/78 96 05/23/24 18:51 05/23/24 18:51 05/23/24 18:51 05/23/24 18:51 05/23/24 18:51 Results - Labs 05/23/24 21:44 05/23/24 21:44 Abnormal Lab Results - Last 24 Hours (Table) 05/23/24 05/23/24 05/23/24 Range/Units 21:44 21:44 21:44 MCV 104.4 H (80.0-100.0) fL Plt Count 108 L (150-450) k/uL PT 14.7 H (10.0-12.5) sec INR 1.4 H (<1.2) D-Dimer 5.79 H (<0.60) mg/L FEU Sodium 135 L (137-145) mmol/L Chloride 109 H (98-107) mmol/L Magnesium 1.4 L (1.6-2.3) mg/dL Total Bilirubin 4.3 H (0.2-1.3) mg/dL AST 58 H (14-36) U/L Alkaline Phosphatase 198 H (38-126) U/L Total Protein 5.8 L (6.3-8.2) g/dL Albumin 2.9 L (3.5-5.0) g/dL LDL Cholesterol, Calc (0.0-131.0) mg/dL 05/24/24 Range/Units 03:38 MCV (80.0-100.0) fL Plt Count (150-450) k/uL PT (10.0-12.5) sec INR (<1.2) D-Dimer (<0.60) mg/L FEU Sodium (137-145) mmol/L Chloride (98-107) mmol/L Magnesium (1.6-2.3) mg/dL Total Bilirubin (0.2-1.3) mg/dL AST (14-36) U/L Alkaline Phosphatase (38-126) U/L Total Protein (6.3-8.2) g/dL Albumin (3.5-5.0) g/dL LDL Cholesterol, Calc 133.2 H (0.0-131.0) mg/dL Diabetes panel 05/23/24 05/24/24 Range/Units 21:44 03:38 Sodium 135 L (137-145) mmol/L Potassium 3.7 (3.5-5.1) mmol/L Chloride 109 H (98-107) mmol/L Carbon Dioxide 22 (22-30) mmol/L BUN 14 (7-17) mg/dL Creatinine 0.69 (0.52-1.04) mg/dL Glucose 92 (74-99) mg/dL Calcium 9.3 (8.4-10.2) mg/dL AST 58 H (14-36) U/L ALT 33 (4-34) U/L Alkaline Phosphatase 198 H (38-126) U/L Total Protein 5.8 L (6.3-8.2) g/dL Albumin 2.9 L (3.5-5.0) g/dL Triglycerides 74.20 (0.00-149.00) mg/dL HDL Cholesterol 49.00 (40.00-60.00) mg/dL Calcium panel 05/23/24 Range/Units 21:44 Calcium 9.3 (8.4-10.2) mg/dL Albumin 2.9 L (3.5-5.0) g/dL Pituitary panel 05/23/24 Range/Units 21:44 Sodium 135 L (137-145) mmol/L Potassium 3.7 (3.5-5.1) mmol/L Chloride 109 H (98-107) mmol/L Carbon Dioxide 22 (22-30) mmol/L BUN 14 (7-17) mg/dL Creatinine 0.69 (0.52-1.04) mg/dL Glucose 92 (74-99) mg/dL Calcium 9.3 (8.4-10.2) mg/dL Adrenal panel 05/23/24 Range/Units 21:44 Sodium 135 L (137-145) mmol/L Potassium 3.7 (3.5-5.1) mmol/L Chloride 109 H (98-107) mmol/L Carbon Dioxide 22 (22-30) mmol/L BUN 14 (7-17) mg/dL Creatinine 0.69 (0.52-1.04) mg/dL Glucose 92 (74-99) mg/dL Calcium 9.3 (8.4-10.2) mg/dL Total Bilirubin 4.3 H (0.2-1.3) mg/dL AST 58 H (14-36) U/L ALT 33 (4-34) U/L Alkaline Phosphatase 198 H (38-126) U/L Total Protein 5.8 L (6.3-8.2) g/dL Albumin 2.9 L (3.5-5.0) g/dL
[2024-05-24] MEDS ORDERED: FUROSEMIDE 40 MG TAB PO PRN (13:19)
[2024-05-24] MEDS ORDERED: ALPRAZolam 0.25 MG TAB PO PRN (13:19)
[2024-05-24] MEDS ORDERED: LOSARTAN 50 MG TAB PO PRN (13:19)
[2024-05-24] MEDS ORDERED: ACETAMINOPHEN TAB 500 MG TAB PO PRN (13:19)
[2024-05-24] MEDS: VITAMIN A 10,000 UNIT (3000 MCG) CAPSULE PO SCH (13:55)
[2024-05-24] MEDS: PANTOPRAZOLE 40 MG TABLET PO SCH (13:55)
[2024-05-24] MEDS: SERTRALINE 25 MG TAB PO SCH (13:56)
--- NOTE | 2024-05-24 14:36 | US ---
EXAMINATION TYPE: US venous doppler duplex LE DATE OF EXAM: 05/24/2024 2:20 PM COMPARISON: NONE CLINICAL INDICATION: Female, 64 years old with history of dvt; Pain, swelling, Pain, Swelling TECHNIQUE: The lower extremity deep venous system is examined utilizing real time linear array sonog dunia with graded compression, color doppler sonography, and spectral doppler. SIDE PERFORMED: Bilateral FINDINGS: VESSELS IMAGED: Common Femoral Vein Deep Femoral Vein Greater Saphenous Vein * Femoral Vein Popliteal Vein Small Saphenous Vein * Proximal Calf Veins (* superficial vessels) Bilateral EIV, GSV unable to be visualized due to pt morbid obesity Right Leg: Visualized portions appeared negative for DVT, Color Doppler imaging shows patency of the vessels. Spectral waveforms are within normal limits. Unable to obtain compressions due to pt morbi d obesity, severe edema, and pt unable to tolerate compression Left Leg: Visualized portions appeared negative for DVT, Color Doppler imaging shows patency of the vessels. Spectral waveforms are within normal limits. Unable to obtain compressions due to pt morbid obesity, severe edema, and pt unable to tolerate compression. There is a left popliteal cyst measuring 6.0 x 2.6 cm. IMPRESSION: 1. Bilateral lower extremity ultrasound negative for deep venous thrombosis. Exam is limited due to b parvin habitus. 2. Left popliteal cyst. [facility], , 05/24/2024 2:33 PM
[2024-05-24 14:52] VITALS: RESP 18
[2024-05-24] MEDS: RIFAXIMIN 550 MG TAB (PTS OWN) PO SCH (15:25)
--- NOTE | 2024-05-24 16:28 | P.GSCN ---
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 Miguel Young in [facility] and also follows with the liver transplant team at the [facility] in [place]. She has a past medical history for hypertension, esophageal varices with previous TIP procedure for her portal vein, nonalcoholic liver cirrhosis currently on the liver transplant list, obstructive sleep apnea with home CPAP use, 1 solitary kidney, UPJ left kidney, sarcoidosis, morbid obesity with a BMI of 44.9 kg/m and a lifetime non- smoker. On May 13, 2024 the patient reports she fell backwards down about 7-8 stairs landing on her back. She did report to a urgent care clinic on May 14 and was subsequently sent home with no further follow-up ins tructions. On May 20, 2024 the patient developed some pain to her lower sternal area and to her right leg and presented to the emergency department at [facility]. The patient states that she was sent home with no follow-up appointment and was diagnosed with a Enriquez's cyst. She denies any fever, chills, nausea, vomiting, diarrhea, constipation, headache, visual disturbances, numbness, tingling to her extremities, presyncope or syncope. The patient and her sister present at her bedside states on May 23 2024 the substernal chest pain became worse and the patient had progressive shortness of breath and presented to the emergency department here at [facility] for further evaluation and treatment recommendations. A CT scan of the chest was completed to rule out pulmonary embolus, and it was negative for pulmonary embolus. The patient states that she felt the sternal pain was musculoskeletal related although due to the shortness of breath she panicked and decided to come to the hospital. Per internal medicine upon reviewing the CT scan of the chest, they felt there may be a possible sternal fracture in the area where the patient is complaining of chest pain. The patient did have a cardiology workup, her serial troponins were negative and she did undergo a transthoracic 2D echocardiogram. The transthoracic 2D echocardiogram showed a left ventricular ejection fraction estimated at 55 to 60%, mild mitral valve regurgitation, mild aortic valve stenosis with a peak gradient of 28 mmHg, a mean gradient of 18 mmHg, mild aortic valve regurgitation, mild tricuspid valve regurgitation, trace pulmonic valve regurgitation, and no pericardial or pleural effusion. Subsequently due to the patient's continued complaints of lower sternal pain and upon internal medicine reviewing the CT scan of the chest a consult was placed to cardiothoracic surgery for further evaluation and treatment recommendations for possible sternal fracture. Review of Systems A review of systems was completed and was negative except as mentioned in the HPI Past Medical History Past Medical History: Hypertension, Liver Disease, Sleep Apnea/CPAP/BIPAP Additional Past Medical History / Comment(s): sacodosis, R solitary kidney, UPJ L kidney, history of esophageal varices, history of heart murmur, nonalcoholic cirrhosis of the liver on the transplant list in [place] for a liver transplant, recent fall from standing on May 13, 2024, fell down 7-8 stairs History of Any Multi-Drug Resistant Organisms: None Reported Past Surgical History: Hysterectomy, Orthopedic Surgery, Tonsillectomy Additional Past Surgical History / Comment(s): L knee, lense replacement Past Psychological History: PTSD Smoking Status: Never smoker Past Alcohol Use History: Occasional Past Drug Use History: None Reported - Past Family History Mother Family Medical History: Coronary Artery Disease (CAD) (Coronary artery bypass grafting x 4,), Vascular Disorder Additional Family Medical History / Comment(s): Esophageal varices Father Family Medical History: COPD Medications and Allergies Home Medications Medication Instructions Recorded Confirmed Type ALPRAZolam [Xanax] 0.25 mg PO Q8H PRN 05/24/24 05/24/24 History Acetaminophen [Tylenol Extra 500 mg PO Q6H PRN 05/24/24 05/24/24 History Strength] Cholecalciferol (Vitamin D3) 50 mcg PO DAILY 05/24/24 05/24/24 History [Vitamin D3 (50 Mcg = 2000 Iu)] Furosemide [Lasix] 20 mg PO DAILY PRN 05/24/24 05/24/24 History Losartan Potassium [Cozaar] 100 mg PO DAILY PRN 05/24/24 05/24/24 History Pantoprazole [Protonix] 40 mg PO DAILY PRN 05/24/24 05/24/24 History Rifaximin [Xifaxan] 550 mg PO BID 05/24/24 05/24/24 History Sertraline [Zoloft] 25 mg PO DAILY 05/24/24 05/24/24 History Vitamin A 2,400 mcg PO DAILY 05/24/24 05/24/24 History cloNIDine 0.1 MG/24HR PATCH 1 patch TRANSDERM WESA 05/24/24 05/24/24 History [Catapres-TTS] Allergies Allergy/AdvReac Type Severity Reaction Status Date / Time No Known Allergies Allergy Verified 05/24/24 07:31 Surgical - Exam Vital Signs Temp Pulse Resp BP Pulse Ox 98.1 F 78 20 166/78 96 05/23/24 18:51 05/23/24 18:51 05/23/24 18:51 05/23/24 18:51 05/23/24 18:51 - General Mild pain to her lower to mid sternum well developed, well nourished, no distress, chronically ill, obese - Eyes PERRL, normal ocular movement, no pale, no icteric - ENT normal pinna, normal nares, normal mucosa, no hearing loss, no congestion - Neck Neck is supple, no lymphadenopathy. no masses, no bruits, trachea midline, no venous distension - Respiratory Lung sounds essentially clear throughout, diminished to her bilateral bases. No wheezes, rhonchi or crackles. Respirations are symmetrical and nonlabored. - Cardiovascular Regular rhythm and rate. S1 and S2 present, negative for S3 or gallop. Pansystolic murmur 2/6. +1 to +2 edema to her bilateral lower extremities. - Abdomen Abdomen is soft, nontender nondistended. Active bowel sounds present all 4 a bdominal quadrants. Obese. No guarding or rigidity. - Genitourinary Deferred - Rectum Deferred - Integumentary Large skin tear to her right forearm, status post fall, dressing clean, dry and intact, large ecchymotic area to her left axilla and left upper triceps area no rash, no growths - Neurologic No focal deficits. normal coordination, normal sensation - Musculoskeletal Generalized weakness, moves all 4 extremities with equal strength bilateral. normal gait, normal posture - Psychiatric oriented to time, oriented to person, oriented to place, speech is normal, memory intact Results - Labs 05/23/24 21:44 05/23/24 21:44 Abnormal Lab Results - Last 24 Hours (Table) 05/23/24 05/23/2405/23/24 Range/Units 21:44 21:44 21:44 MCV 104.4 H (80.0-100.0) fL Plt Count 108 L (150-450) k/uL PT 14.7 H (10.0-12.5) sec INR 1.4 H (<1.2) D-Dimer 5.79 H (<0.60) mg/L FEU Sodium 135 L (137-145) mmol/L Chloride 109 H (98-107) mmol/L Magnesium 1.4 L (1.6-2.3) mg/dL Total Bilirubin 4.3 H (0.2-1.3) mg/dL AST 58 H (14-36) U/L Alkaline Phosphatase 198 H (38-126) U/L Ammonia (<30) umol/L Total Protein 5.8 L (6.3-8.2) g/dL Albumin 2.9 L (3.5-5.0) g/dL LDL Cholesterol, Calc (0.0-131.0) mg/dL 05/24/24 05/24/24 Range/Units 03:38 14:16 MCV (80.0-100.0) fL Plt Count (150-450) k/uL PT (10.0-12.5) sec INR (<1.2) D-Dimer (<0.60) mg/L FEU Sodium (137-145) mmol/L Chloride (98-107) mmol/L Magnesium (1.6-2.3) mg/dL Total Bilirubin (0.2-1.3) mg/dL AST (14-36) U/L Alkaline Phosphatase (38-126) U/L Ammonia 51 H (<30) umol/L Total Protein (6.3-8.2) g/dL Albumin (3.5-5.0) g/dL LDL Cholesterol, Calc 133.2 H (0.0-131.0) mg/dL Diabetes panel 05/23/24 05/24/24 Range/Units 21:44 03:38 Sodium 135 L (137-145) mmol/L Potassium 3.7 (3.5-5.1) mmol/L Chloride 109 H (98-107) mmol/L Carbon Dioxide 22 (22-30) mmol/L BUN 14 (7-17) mg/dL Creatinine 0.69 (0.52-1.04) mg/dL Glucose 92 (74-99) mg/dL Calcium 9.3 (8.4-10.2) mg/dL AST 58 H (14-36) U/L ALT 33 (4-34) U/L Alkaline Phosphatase 198 H (38-126) U/L Total Protein 5.8 L (6.3-8.2) g/dL Albumin 2.9 L (3.5-5.0) g/dL Triglycerides 74.20 (0.00-149.00) mg/dL HDL Cholesterol 49.00 (40.00-60.00) mg/dL Calcium panel 05/23/24 Range/Units 21:44 Calcium 9.3 (8.4-10.2) mg/dL Albumin 2.9 L (3.5-5.0) g/dL Pituitary panel 05/23/24 Range/Units 21:44 Sodium 135 L (137-145) mmol/L Potassium 3.7 (3.5-5.1) mmol/L Chloride 109 H (98-107) mmol/L Carbon Dioxide 22 (22-30) mmol/L BUN 14 (7-17) mg/dL Creatinine 0.69 (0.52-1.04) mg/dL Glucose 92 (74-99) mg/dL Calcium 9.3 (8.4-10.2) mg/dL Adrenal panel 05/23/24 Range/Units 21:44 Sodium 135 L (137-145) mmol/L Potassium 3.7 (3.5-5.1) mmol/L Chloride 109 H (98-107) mmol/L Carbon Dioxide 22 (22-30) mmol/L BUN 14 (7-17) mg/dL Creatinine 0.69 (0.52-1.04) mg/dL Glucose 92 (74-99) mg/dL Calcium 9.3 (8.4-10.2) mg/dL Total Bilirubin 4.3 H (0.2-1.3) mg/dL AST 58 H (14-36) U/L ALT 33 (4-34) U/L Alkaline Phosphatase 198 H (38-126) U/L Total Protein 5.8 L (6.3-8.2) g/dL Albumin 2.9 L (3.5-5.0) g/dL - Imaging CT scan - chest: report reviewed, image reviewed Assessment and Plan Assessment: Fall from standing down 7-8 stairs on May 13, 2024, CT scan of the chest report showing no evidence of sternal fracture Noncardiac chest pain, likely secondary to above History of end-stage liver disease on transplant list in [place] Hypertension Solitary kidney, UPJ left kidney History of esophageal varices, history of GI bleed Obstructive sleep apnea with home CPAP use History of sarcoidosis Lifetime non-smoker Morbid obesity with a BMI of 44.9 kg/m Plan: The patient was seen and examined at her bedside on the 6 floor cardiac observation unit. Her chart and diagnostics reviewed. Her case was discussed in detail with Dr. Caleb Heredia from cardiothoracic surgery. No surgical intervention is warranted at this time. A surgical support bra has been ordered for the patient. The patient has been recommended no lifting, pushing, or pulling anything greater than 10 pounds or jug of milk for 12 full weeks. Pain control per as needed orders. Use incentive spirometry 10 times every hour while awake. Medical management other comorbidities per internal medicine, cardiology and general surgery. We will continue to follow the patient on an as needed basis. Thank you for this consult. I have personally seen and examined the patient, performed the documentation and the assessment and plan as written. Number of minutes spent on the visit: 30. STEPHANIE Maynard
[2024-05-24 17:01] LABS: Amphetamine Screen,Urine Not Detected (NotDetected); Barbiturate Screen,Urine Not Detected (NotDetected); Benzodiazepines Screen,Urine Detected (NotDetected); Cocaine Screen,Urine Not Detected (NotDetected); Methadone Screen, Urine Not Detected (NotDetected); Opiate Screen,Urine Detected (NotDetected); Phencyclidine Screen,Urine Not Detected (NotDetected); Tricyclic Antidepressant,Urine Not Detected (NotDetected); Urn Cannabinoid Scrn Not Detected (NotDetected)
[2024-05-24 17:02] LABS: Oxycodone Screen, Urine Not Detected (NotDetected)
--- NOTE | 2024-05-25 01:05 | HP ---
HISTORY AND PHYSICAL CHIEF COMPLAINT: Chest pain. HISTORY OF PRESENT ILLNESS: This is a 64-year-old woman with a past medical history of multiple medical problems, had sarcoidosis and as well as fatty liver induced chronic liver disease and cirrhosis of liver. The patient is on transplant list from [facility] from [place]. 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 The patient apparently shuttles between [place] and [place] during the winter and the patient apparently just came back and had a fall about 10 days ago, hit in the back and now the patient is currently complaining of severe substernal chest pain with some local tenderness and the patient also had some leg pain. The patient came to [facility] and admitted for further evaluation and treatment. An ultrasound done in [facility] is negative for DVT. There is no history of any fever, rigors, or chills. Initial evaluation showed sodium 135, bilirubin was elevated to 4.3. Albumin is 2.9. A chest CT was done, which showed no pulmonary embolism, a small right pleural effusion, mild bilateral atelectasis. Abdominal pelvis CAT scan showed small foci of gas in the bladder and as well as cirrhosis of liver and large cyst in the left abdomen, possibly peritoneal inclusion cyst and chronic diverticulosis. Multiple consultants are following the patient closely. A 2D echo with Doppler showed aortic sclerosis with [id number] stenosis. The patient is being closely monitored at this time. There is no history of any fever, rigors, or chills. PAST MEDICAL HISTORY: Reviewed include liver cirrhosis, sarcoidosis, right solitary kidney, PTSD. Rest of the history and rest of the chart is also reviewed. HOME MEDICATIONS: Vitamin A. Dose and rest of medications reviewed. ALLERGIES: None. FAMILY HISTORY: No history of heart disease or strokes in the family. SOCIAL HISTORY: Occasional alcohol, otherwise, no smoking. REVIEW OF SYSTEMS: Fourteen-point review is negative except as mentioned earlier. PHYSICAL EXAMINATION: VITAL SIGNS: Pulse is 72, blood pressure 127/64, respirations 16. HEENT: Conjunctivae normal. NECK: No JVD. CARDIOVASCULAR: S1, S2. RESPIRATIONS: Breath sounds diminished at the bases. No rhonchi. No crackles. CHEST: Some mild local tenderness present. ABDOMEN: Soft, obese. No tenderness. No mass palpable. LEGS: No edema. No swelling. NERVOUS SYSTEM: Nonfocal. SKIN: No ulcer, rash, bleeding. JOINTS: No active deforming arthropathy. LABORATORY DATA: MCV 104.4, INR 1.4. Rest of the labs are noted. ASSESSMENT: 1. Chest pain for evaluation, rule out coronary artery disease, possible musculoskeletal. 2. History of recent fall. 3. Large cyst in the abdomen, possibly peritoneal inclusion cyst. 4. Cirrhosis of liver secondary to fatty liver disease and for liver transplant. 5. Hyperbilirubinemia, possibly secondary to cirrhosis of liver. 6. Sarcoidosis. 7. Right solitary kidney. 8. Degenerative joint disease. 9. History of posttraumatic stress disorder. 10.Elevated D-dimer of undetermined etiology. RECOMMENDATIONS AND DISCUSSION: This is a 64-year-old woman, who presented with multiple complex medical issues, we will monitor the patient closely. I will recommend continue with the current medications, symptomatic treatment. Closely follow with multiple consultants. Repeat labs in the morning. Overall prognosis extremely guarded because of multiple complex medical issues. The patient's D-dimer is elevated to 5.79. I would also recommend ultrasound of the leg to rule out possible DVT. MMODL / IJN: [id number] /
[2024-05-25 05:45] LABS: ALT 29 U/L (4-34); African American GFR (CKD) >90 (>60 ml/min/1.73 sqM); Albumin/Globulin Ratio 0.9; Anion Gap 1 mmol/L; Blood Urea Nitrogen 16 mg/dL (7-17); Calcium 8.7 mg/dL (8.4-10.2); Carbon Dioxide 26 mmol/L (22-30); Chloride 106 mmol/L (98-107); Globulin 2.9 g/dL; Glucose 113 mg/dL (74-99); Non-African American GFR(CKD) 83 (>60 ml/min/1.73 sqM); Sodium 133 mmol/L (137-145); Total Bilirubin 3.3 mg/dL (0.2-1.3)
[2024-05-25 05:48] LABS: AST 67 U/L (14-36); Albumin 2.7 g/dL (3.5-5.0); Alkaline Phosphatase 185 U/L (38-126); Potassium 3.8 mmol/L (3.5-5.1); Total Protein 5.6 g/dL (6.3-8.2)
[2024-05-25 07:59] VITALS: BP 144/75; TEMP 97.3
--- NOTE | 2024-05-25 08:00 | P.PN ---
Subjective Progress Note Date: 05/25/24 Consult reason: chest pain History of present illness: This is a 64-year-old female with no previous cardiac history and does not follow with a debt recovery officer. She has a past medical history of hypertension, fatty liver with end-stage liver disease on transplant list, hypertension, GERD. We have been asked to evaluate the patient for chest pain. Patient states that on May 13 she return from [place] was at her sister's place in [place] and fell down stairs injuring her knee her right arm and across her chest. She denies any loss of consciousness. But she had difficulty walking following this due to knee injury. When she went to her own home, she was sore but was doing okay until Thursday evening she developed excruciating chest pain in the sternal area that was sharp, worse with deep breathing. She denies any radiation of the pain. Patient follows with [facility] in [place] every 3 months due to the liver failure status post TIPS procedure 2 years ago. She has been on the liver transplant list for 1 year. She underwent a dobutamine stress test at [facility] in September of this year which she reports is normal as well as echocard iogram. Regarding the chest pain, she does states she hit her chest when she fell on May 13. She does have tenderness to the chest wall. Patient does have lower extremity edema which she states has been increased since her fall. She did take her Lasix 40 mg yesterday as well as Aldactone 100 mg. Blood pressure 126/57, heart rate 68, pulse ox 97% on 2 L. Also, patient recently had ultrasound of lower extremities at [facility] negative for DVT EKG: Sinus rhythm with no acute ST changes Chest x-ray: Posterior pleural effusions. CT of the abdomen pelvis revealed small foci of gas in bladder. Correlate for recent instrumentation versus cystitis. Cirrhotic liver with portal hyp ertension. Large cyst in the left abdomen measuring 21 x 17 x 25 cm. This may represent a peritoneal inclusion cyst. Colonic diverticulosis. CTA of the chest revealed no pulmonary embolism. Small right pleural effusion. Mild bibasilar atelectasis. Laboratory studies: WBC 6.5, hemoglobin 13.2. INR 1.4. D-dimer 5.79. Sodium 135, potassium 3.7. Creatinine 0.69. Troponin negative x 3. Magnesium 1.4. Total bilirubin 4.3, AST 58, alkaline phosphatase 198. proBNP 1150 Home cardiac medications: Clonidine patch 0.1 mg per 24-hour on Wednesdays and Saturdays, Lasix 20 mg daily as needed, losartan 100 mg daily as needed. 05/25 Patient is seen and examined. Blood pressure 124/73, heart rate 84, pulse ox 97% on room air. Repeat blood work reveals sodium 133, potassium 3.8, creatinine 0.76. Yesterday, patient also had ammonia level done which was high at 51. Urine drug screen positive for opiates and benzodiazepines. Triglycerides 74, cholesterol 197, LDL 133, HDL 49. Echocardiogram reveals normal biventricular systolic function. Aortic sclerosis with mild to moderate stenosis and mean gradient of 18 mmHg and mild aortic insufficiency. Normal pulmonary artery systolic pressure. Telemetry is sinus rhythm. Patient has been maintained on IV Lasix 40 mg every 12 hours. She still has some lower extremity edema. Discussed option of transitioning IV Lasix to oral if she wo uld like to go home today. Patient voices much frustration with multiple blood draws and bruising in her arms. This has been passed on to the patient's nurse. Physical examination: Gen: This is a 64-year-old female in no acute distress VS: reviewed HEENT: Head is atraumatic, normocephalic. Pupils equal, round. Sclerae is anicteric. NECK: Supple. No JVD. LUNGS: Clear to auscultation. No wheezes or rhonchi. No intercostal retractions. HEART: Regular rate and rhythm. Systolic murmur. ABDOMEN: Soft No tenderness. EXTREMITIES: Bilateral lower extremity edema. No calf tenderness. NEUROLOGICAL: Patient is awake, alert and oriented x3. Assessment: Noncardiac chest pain, musculoskeletal chest pain is reproducible secondary to recent fall History of end-stage liver disease on transplant list Hypertension Plan: Continue patient on IV Lasix 40 mg every 12 hours Monitor ISADORA, daily weights, electrolytes and renal function No plan to repeat stress test as this was done in September Patient may be transition to oral Lasix today if discharge is planned. Patient may follow-up in the office in 1 to 2 weeks. Nurse practitioner note has been reviewed, I agree with documented findings and plan of care. Patient was seen and examined. Objective - Vital Signs Vital signs: Vital Signs Temp 98.2 F 05/25/24 02:09 Pulse 84 05/25/24 02:09 Resp 18 05/25/24 02:09 BP 124/73 05/25/24 02:09 Pulse Ox 97 05/25/24 02:09 FiO2 Intake & Output 05/24/24 05/25/24 05/25/24 18:59 06:59 18:59 Output Total 700 350 Balance -700 -350 Weight 122.47 kg Output: Urine 700 350 Other: Voiding Method External Catheter External Catheter # Voids 500 2 - Labs CBC & Chem 7: 05/23/24 21:44 05/25/24 04:41 Labs: Abnormal Lab Results - Last 24 Hours (Table) 05/24/24 05/24/24 05/24/24 Range/Units 03:38 14:16 16:21 Sodium (137-145) mmol/L Glucose (74-99) mg/dL Total Bilirubin (0.2-1.3) mg/dL AST (14-36) U/L Alkaline Phosphatase (38-126) U/L Ammonia 51 H (<30) umol/L Total Protein (6.3-8.2) g/dL Albumin (3.5-5.0) g/dL LDL Cholesterol, Calc 133.2 H (0.0-131.0) mg/dL Urine Opiates Screen Detected H (NotDetected) U Benzodiazepines Scrn Detected H (NotDetected) 05/25/24 Range/Units 04:41 Sodium 133 L (137-145) mmol/L Glucose 113 H (74-99) mg/dL Total Bilirubin 3.3 H (0.2-1.3) mg/dL AST 67 H (14-36) U/L Alkaline Phosphatase 185 H (38-126) U/L Ammonia (<30) umol/L Total Protein 5.6 L (6.3-8.2) g/dL Albumin 2.7 L (3.5-5.0) g/dL LDL Cholesterol, Calc (0.0-131.0) mg/dL Urine Opiates Screen (NotDetected) U Benzodiazepines Scrn (NotDetected)
[2024-05-25] MEDS: cloNIDine 0.1 MG/24HR PATCH TRANSDERM SCH (08:34)
[2024-05-25] MEDS: CHOLECALCIFEROL 25 MCG (1000 IU) TABLET PO SCH (08:34)
[2024-05-25 10:46] LABS: Basophils # (A) 0.05 X 10*3/uL (0.00-0.10); Basophils % (A) 0.8 %; Eosinophils # (A) 0.29 X 10*3/uL (0.04-0.35); Eosinophils % (A) 4.4 %; HCT 35.9 % (37.2-46.3); HGB 11.8 g/dL (12.0-15.0); Lymphocytes # (A) 1.94 X 10*3/uL (0.90-5.00); Lymphocytes % (A) 29.1 %; MCH 34.2 pg (27.0-32.0); MCHC 32.9 g/dL (32.0-37.0); MCV 104.1 FL (80.0-97.0); Macrocytosis (M) 2+; Mean Platelet Volume 9.2 FL (9.5-12.2); NRBC Per 100 WBC 0 X 10*3/uL (0.00-0.01); Neutrophils # (A) 3.56 X 10*3/uL (1.80-7.70); Neutrophils % (A) 53.4 %; Platelet Count 80 X 10*3/uL (140-440); RBC 3.45 X 10*6/uL (4.10-5.20); RDW 15.5 % (11.5-14.5); WBC 6.66 X 10*3/uL (4.50-10.00)
[2024-05-25 11:53] VITALS: PULSE 72
--- NOTE | 2024-05-25 13:24 | P.PN ---
Subjective Progress Note Date: 05/25/24 SURGICAL PROGRESS NOTE CHIEF COMPLAINT: Chest pain HISTORY OF PRESENT ILLNESS: Patient lying in bed comfortably. She does complain of sternal pain. Denies any abdominal pain. Tolerating diet. Denies any nausea or vomiting. Afebrile. WBC 6.66 PHYSICAL EXAM: VITAL SIGNS: Reviewed. GENERAL: Well-developed in no acute distress. ABDOMEN: Soft. Nondistended. Obese nontender. NEUROLOGIC: Alert and oriented. Cranial nerves II through XII grossly intact. ASSESSMENT: 1. Large cyst in the left abdomen measuring 21 x 17 x 24 cm possible peritoneal inclusion cyst PLAN: -No surgical intervention planned -Recommend a repeat CT scan in 3 months for further evaluation of cyst -Patient is planning to follow-up with her physicians in [place] for further imaging -Patient can be discharge from surgical standpoint when medically cleared Physician Grease Press Helper note has been reviewed by physician. Signing provider agrees with the documented findings, assessment, and plan of care. Objective - Vital Signs Vital signs: Vital Signs Temp 97.3 F L 05/25/24 07:25 Pulse 72 05/25/24 11:49 Resp 18 05/25/24 07:25 BP 144/75 05/25/24 07:25 Pulse Ox 97 05/25/24 07:25 FiO2 Intake & Output 05/24/24 05/25/24 05/25/24 18:59 06:59 18:59 Intake Total 118 Output Total 700 350 Balance -700 -350 118 Weight 122.47 kg Intake: Oral 118 Output: Urine 700 350 Other: Voiding Method External Catheter External Catheter # Voids 500 2 - Labs CBC & Chem 7: 05/25/24 08:17 05/25/24 04:41 Labs: Abnormal Lab Results - Last 24 Hours (Table) 05/24/24 05/24/24 05/25/24 Range/Units 14:16 16:21 04:41 RBC (4.10-5.20) X 10*6/uL Hgb (12.0-15.0) g/dL Hct (37.2-46.3) % MCV (80.0-97.0) FL MCH (27.0-32.0) pg RDW (11.5-14.5) % Plt Count (140-440) X 10*3/uL MPV (9.5-12.2) FL Macrocytosis (manual) Sodium 133 L (137-145) mmol/L Glucose 113 H (74-99) mg/dL Total Bilirubin 3.3 H (0.2-1.3) mg/dL AST 67 H (14-36) U/L Alkaline Phosphatase 185 H (38-126) U/L Ammonia 51 H (<30) umol/L Total Protein 5.6 L (6.3-8.2) g/dL Albumin 2.7 L (3.5-5.0) g/dL Urine Opiates Screen Detected H (NotDetected) U Benzodiazepines Scrn Detected H (NotDetected) 05/25/24 Range/Units 08:17 RBC 3.45 L (4.10-5.20) X 10*6/uL Hgb 11.8 L (12.0-15.0) g/dL Hct 35.9 L (37.2-46.3) % MCV 104.1 H (80.0-97.0) FL MCH 34.2 H (27.0-32.0) pg RDW 15.5 H (11.5-14.5) % Plt Count 80 L (140-440) X 10*3/uL MPV 9.2 L (9.5-12.2) FL Macrocytosis (manual) 2+ A Sodium (137-145) mmol/L Glucose (74-99) mg/dL Total Bilirubin (0.2-1.3) mg/dL AST (14-36) U/L Alkaline Phosphatase (38-126) U/L Ammonia (<30) umol/L Total Protein (6.3-8.2) g/dL Albumin (3.5-5.0) g/dL Urine Opiates Screen (NotDetected) U Benzodiazepines Scrn (NotDetected)
[2024-05-25] MEDS: HYDROcodone/APAP 5-325MG 1 EACH TAB PO PRN (14:33)
--- NOTE | 2024-05-28 12:46 | P.DS ---
Providers Date of admission: 05/24/24 13:52 Expected date of discharge: 05/25/24 Attending physician: Elias Ayers Consults: 05/23/24 23:44 Consult Physician Urgent Consulting Provider: Hai Salas Consult Reason/Comments: abdominal cyst Do you want consulting provider notified?: Yes Consult Physician Urgent Consulting Provider: Steffen Murray Consult Reason/Comments: chest pain Do you want consulting provider notified?: Yes 05/24/24 15:14 Consult Physician Urgent Consulting Provider: Caleb Heredia Consult Reason/Comments: sternal fracture? 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 Patient will follow-up with primary care provider out of [place] in the outpatient setting upon discharge. Patient is to continue with close outpatient follow-up with general surgery as well as cardiology as scheduled. Total time taken is greater than 35 minutes. Hospital course This is a 64-year-old female who was recently admitted with sternal chest pain and noted to have a sternal fracture possibly on imaging. Patient reports she was going up the stairs and fell down her steps tumbling multiple times having increased chest pains. Incidental finding of an abdominal cyst on imaging evaluated by cardiology as well as general surgery. Patient denies having any abdominal pain, discomfort, or issues with bowel activity and general surgery reports no plans of surgical intervention at this time and monitoring this abdominal cyst. Patient does live in [place] and has primary care providers out there and will also follow-up in the outpatient setting. Patient follows with the [facility] and is a liver transplant patient awaiting a liver for cirrhosis of the liver secondary to fatty liver. Patient has been cleared by consultations and would like to go home. Patient is extremely keen on going home today and has been cleared by consultations. Please refer to consultation notes for further HPI. Currently no reports of chest pain, shortness of breath, or palpitations. Patient is afebrile. No reports of nausea or vomiting and patient is tolerating diet. Patient will be discharged home today. Guarded prognosis and high risk for readmissions. Physical exam: Gen: This is a 64-year-old female who is awake, alert and oriented x 3, well- developed, elderly, morbidly obese HEENT: Head is atraumatic, normocephalic. Pupils equal, round. Sclerae is anicteric. NECK: Supple. No JVD. No lymphadenopathy. No thyromegaly. LUNGS: Diminished breath sounds bilaterally otherwise clear to auscultation. No wheezes or rhonchi. No intercostal retractions. HEART: Regular rate and rhythm. No murmur. ABDOMEN: Soft. Obese bowel sounds are present. No masses. No tenderness. EXTREMITIES: No pedal edema. No calf tenderness. NEUROLOGICAL: Patient is awake, alert and oriented x3. Cranial nerves 2 through 12 are grossly intact. Please refer to medication reconciliation sheet for a list of medications. The impression and plan of care has been dictated by Roxana Mitchell, Nurse Practitioner as directed. Dr. Armen MD I have performed a history and examination and MDM of this patient, discussed the same with the dictator, and agree with the dictator's assessment and plan as written ,documented as a scribe. Based on total visit time, I have performed more than 50% of the visit. Patient Condition at Discharge: Fair Plan - Discharge Summary Discharge Rx Participant: No New Discharge Prescriptions: Continue Vitamin A 2,400 mcg PO DAILY Cholecalciferol (Vitamin D3) [Vitamin D3 (50 Mcg = 2000 Iu)] 50 mcg PO DAILY Sertraline [Zoloft] 25 mg PO DAILY ALPRAZolam [Xanax] 0.25 mg PO Q8H PRN PRN Reason: Anxiety Pantoprazole [Protonix] 40 mg PO DAILY PRN PRN Reason: Gi Upset Acetaminophen [Tylenol Extra Strength] 500 mg PO Q6H PRN PRN Reason: Fever And/ Or Pain Rifaximin [Xifaxan] 550 mg PO BID Losartan Potassium [Cozaar] 100 mg PO DAILY PRN PRN Reason: Blood Pressure - High cloNIDine 0.1 MG/24HR PATCH [Catapres-TTS] 1 patch TRANSDERM WESA Changed Furosemide [Lasix] 40 mg PO DAILY PRN #30 tab PRN Reason: Edema Discharge Medication List ALPRAZolam [Xanax] 0.25 mg PO Q8H PRN 05/24/24 [History] Acetaminophen [Tylenol Extra Strength] 500 mg PO Q6H PRN 05/24/24 [History] Cholecalciferol (Vitamin D3) [Vitamin D3 (50 Mcg = 2000 Iu)] 50 mcg PO DAILY 05/24/24 [History] Losartan Potassium [Cozaar] 100 mg PO DAILY PRN 05/24/24 [History] Pantoprazole [Protonix] 40 mg PO DAILY PRN 05/24/24 [History] Rifaximin [Xifaxan] 550 mg PO BID 05/24/24 [History] Sertraline [Zoloft] 25 mg PO DAILY 05/24/24 [History] Vitamin A 2,400 mcg PO DAILY 05/24/24 [History] cloNIDine 0.1 MG/24HR PATCH [Catapres-TTS] 1 patch TRANSDERM WESA 05/24/24 [History] Furosemide [Lasix] 40 mg PO DAILY PRN #30 tab 05/25/24 [Rx] Follow up Appointment(s)/Referral(s): Steffen Murray MD [STAFF PHYSICIAN] - 1 Week (Office will call patient with appointment ) Reynaldo,Physician [Primary Care Provider] - 1-2 days Patient Instructions/Handouts: Chest Pain (DC) Activity/Diet/Wound Care/Special Instructions: Activity is limited until follow-up No heavy lifting pulling climbing for the next few weeks until reevaluated by primary care provider Continue with supportive bra Continue incentive spirometer 10 times every hour while awake Follow-up with general surgery outpatient as needed Follow-up with your transplant team Discharge Disposition: HOME SELF-CARE
== END 2024-05-25 14:58 | disposition home or self-care (01) ==
LOC: EC 18:47 → 6NMEDSUR 05-24 00:47 → OBSVTOIN 05-24 13:52 → INTOOBSV 05-24 13:52 → UNDODISIN 05-25 14:58
PROVIDERS: ADMIT Hospitalist; ATTEND Hospitalist
DX: R07.89 Other chest pain (principal); Q60.0 Renal agenesis, unilateral; K72.10 Chronic hepatic failure without coma; I10 Essential (primary) hypertension; D86.9 Sarcoidosis, unspecified; K66.8 Other specified disorders of peritoneum; G47.33 Obstructive sleep apnea (adult) (pediatric); K21.9 Gastro-esophageal reflux disease without esophagitis; K76.0 Fatty (change of) liver, not elsewhere classified; K74.60 Unspecified cirrhosis of liver; E80.6 Other disorders of bilirubin metabolism; R79.1 Abnormal coagulation profile; M19.90 Unspecified osteoarthritis, unspecified site; F43.10 Post-traumatic stress disorder, unspecified; E66.01 Morbid (severe) obesity due to excess calories; Z79.899 Other long term (current) drug therapy; Z68.41 Body mass index [BMI] 40.0-44.9, adult
CPT/HCPCS: 96376 ×3; 96374; 96375; 99285; 36415; 93005 ×2; 93306; 85379; 83880; 80061; 80053 ×2; 82140; 83735; 84484 ×2; 85025 ×2; 85610; 85730; 81003; 80306; 71046; 93970; 71275; 74177; G0378 ×2; J1940 ×2; J1171 ×3; Q9967; 96361